=== PATIENT | male | born 1960 | race Caucasian/White ===

== ENCOUNTER → 2016-08-12 | Outpatient (CLI) | payer BC ==
--- NOTE | ~2016-08-12 | NDGEN ---
PATIENT'S NAME: ADINA SAVAGE [facility] AGE: 56 Y [address] ROOM: [place] [id number] LOCATION: [facility] ADMIT DATE: 08/12/2016 [facility]ostics DISCHARGE DATE: FAMILY PHYSICIAN: DIANE ETIENNE MD ATTENDING PHYSICIAN: MARTHA PENNINGTON PROCEDURE: NERVE CONDUCTION STUDY OF THE BILATERAL UPPER EXTREMITIES. DATE OF PROCEDURE: 08/12/2016 INDICATIONS: This is a 56-year-old male patient who had carpal tunnel release surgery in the right wrist. He did not have it in the left wrist. He complains about numbness into his fingers, particularly into the fifth digit distal phalanx region where there is some local pain. He states that he also has some numbness that is exacerbated when he lifts objects up. 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 This nerve conduction study was to rule out any possibility of median or ulnar neuropathy of the bilateral upper extremities. Nerve conduction studies were done to the median, ulnar, motor, and sensory nerves. There were normal motor onset latencies, amplitudes, and nerve conduction velocities as well as normal peak onset latencies in the sensory nerves with normal sensory nerve action potential velocities seen. Based upon the studies here, needle EMG was not warranted due to the fact the patient did not have any focal weakness or atrophy of the bilateral upper extremities and did not have any cervical radicular symptoms. IMPRESSION: There are normal nerve conduction studies of the bilateral upper extremities and there is no evidence to support a median or ulnar neuropathy at this time. MD PRISCILA MELGAR/jessenia /[id number] dtt: 08/17/16 1556 , MARTHA PENNINGTON. dtd: 08/12/16 1328
== END | disposition disaster alternative care site (69) ==
LOC: GNEU 11:00
DX: R20.0 Anesthesia of skin (principal); R20.2 Paresthesia of skin